=== PATIENT | female | born 1980 | race American Indian/Alaskan Native ===

== ENCOUNTER 2018-02-20 22:25 | Emergency (ER) | payer OTHER ==
[~2018-02-20] VITALS: Ht 154.9 cm; Wt 63.5 kg
[2018-02-20] MEDS ORDERED: LAMICTAL25 MG PO (22:34)
== END 2018-02-20 23:58 | disposition home or self-care (01) ==
LOC: ED 22:25
DX: R55 Syncope and collapse (principal); F17.200 Nicotine dependence, unspecified, uncomplicated; Z79.899 Other long term (current) drug therapy
CPT/HCPCS: 80053; 81001; 84484; 84703; 85025; 99283; G0480; J7030

== ENCOUNTER 2018-08-30 14:48 | Emergency (ER) | payer OTHER ==
[~2018-08-30] VITALS: Ht 154.9 cm; Wt 63.5 kg
[~2018-08-30 14:48] MED LIST: LAMICTAL25 MG PO
== END 2018-08-30 16:36 | disposition home or self-care (01) ==
LOC: ED 14:48
DX: F41.9 Anxiety disorder, unspecified (principal); F43.9 Reaction to severe stress, unspecified; F17.200 Nicotine dependence, unspecified, uncomplicated; Z79.899 Other long term (current) drug therapy
CPT/HCPCS: 80053; 81001; 84703; 85025; 99284; J7030

== ENCOUNTER 2018-12-21 15:18 | Emergency (ER) | payer OTHER ==
[~2018-12-21] VITALS: Ht 154.9 cm; Wt 63.5 kg
[2018-12-21] MEDS ORDERED: KEPPRA500 MG PO (16:08)
== END 2018-12-21 16:55 | disposition home or self-care (01) ==
LOC: ED 15:18
DX: S09.90XA Unspecified injury of head, initial encounter (principal); G40.409 Other generalized epilepsy and epileptic syndromes, not intractable, without status epilepticus; F17.200 Nicotine dependence, unspecified, uncomplicated; Z79.899 Other long term (current) drug therapy; W22.8XXA Striking against or struck by other objects, initial encounter
CPT/HCPCS: 70450; 99283-25

== ENCOUNTER 2019-01-12 16:57 | Emergency (ER) | payer OTHER ==
[~2019-01-12] VITALS: Ht 154.9 cm; Wt 63.0 kg
[~2019-01-12 16:57] MED LIST changes: +KEPPRA500 MG PO
--- OUTSIDE RECORDS SUMMARY | 2019-01-12 17:00 | XMS ---
PreManage Notification: COREY LAFLEUR Security Policewoman Events No recent Security Events currently on file CRITERIA MET - [facility] - 2 Visits in 30 Days CARE PROVIDERS There are no care providers on record at this time. Gisela has no Care Guidelines for this patient. Parish VISIT COUNT (12 MO.) [address] [facility] TOTAL 4 NOTE: Visits indicate total known visits. ED/C VISIT TRACKING (12 MO.) 01/12/2019 16:[address] [facility] [place] TYPE: Emergency COMPLAINT: - POSS SEIZURE 12/21/2018 15:[address] [facility] [place] TYPE: Emergency COMPLAINT: - HEAD PAIN/INJURY DIAGNOSES: - Nicotine dependence, unspecified, uncomplicated - Headache - Other generalized epilepsy and epileptic syndromes, not intractable, without status epilepticus - Other intermodal owner operator truck driver (current) drug therapy - Striking against or struck by other objects, initial encounter - Unspecified injury of head, initial encounter 08/30/2018 14:49 [facility] [place] [place] TYPE: Emergency COMPLAINT: - POSS SEIZURES DIAGNOSES: - Anxiety disorder, unspecified - Other penitentiary (current) drug therapy - Reaction to severe stress, unspecified - Nicotine dependence, unspecified, uncomplicated - Syncope and collapse 02/20/2018 22:[address] [facility] [address] [facility] [place] [place] TYPE: Emergency COMPLAINT: - POSS SEIZURE DIAGNOSES: - Syncope and collapse - Other penitentiary (current) drug therapy - Dizziness and giddiness - Nicotine dependence, unspecified, uncomplicated INPATIENT VISIT TRACKING (12 MO.) No inpatient visits to display in this time frame [id number]
== END 2019-01-12 19:05 | disposition home or self-care (01) ==
LOC: ED 16:57
DX: G40.909 Epilepsy, unspecified, not intractable, without status epilepticus (principal); F17.200 Nicotine dependence, unspecified, uncomplicated; Z79.899 Other long term (current) drug therapy
CPT/HCPCS: 99283

== ENCOUNTER 2020-03-23 16:26 | Emergency (ER) | payer OTHER ==
[~2020-03-23] VITALS: Ht 154.9 cm; Wt 63.0 kg
== END 2020-03-23 17:58 | disposition home or self-care (01) ==
LOC: ED 16:26
DX: S49.92XA Unspecified injury of left shoulder and upper arm, initial encounter (principal); F17.200 Nicotine dependence, unspecified, uncomplicated; W06.XXXA Fall from bed, initial encounter
CPT/HCPCS: 73030; 99283-25

== ENCOUNTER 2020-06-02 03:16 | Emergency (ER) | payer OTHER ==
[~2020-06-02] VITALS: Ht 154.9 cm; Wt 63.0 kg
[2020-06-02] MEDS ORDERED: MIRENA1 EACH IY (03:31)
[2020-06-02] MEDS ORDERED: VIMPAT100 MG PO (05:07)
[2020-06-02] MEDS ORDERED: PYRIDOXINE HCL50 MG PO (05:07)
== END 2020-06-02 06:05 | disposition home or self-care (01) ==
LOC: ED 03:16
DX: R56.9 Unspecified convulsions (principal); F17.200 Nicotine dependence, unspecified, uncomplicated; Z79.899 Other long term (current) drug therapy
CPT/HCPCS: 80053; 83735; 85025; 99285; J7030

== ENCOUNTER 2020-08-01 15:31 | Emergency (ER) | payer OTHER ==
[~2020-08-01] VITALS: Ht 154.9 cm; Wt 63.5 kg
[~2020-08-01 15:31] MED LIST changes: +MIRENA1 EACH IY; +PYRIDOXINE HCL50 MG PO; +VIMPAT100 MG PO
== END 2020-08-01 19:44 | disposition home or self-care (01) ==
LOC: ED 15:31
DX: K92.1 Melena (principal)
CPT/HCPCS: 80053; 85025; 99284

== ENCOUNTER 2020-08-26 17:46 | Emergency (ER) | payer OTHER ==
[~2020-08-26] VITALS: Ht 154.9 cm; Wt 63.5 kg
--- OUTSIDE RECORDS SUMMARY | 2020-08-26 17:48 | XMS ---
PreManage Notification: COREY LAFLEUR Security Spinning Room Worker Events No recent Security Events currently on file CRITERIA MET - [facility] - 2 Visits in 30 Days CARE PROVIDERS There are no care providers on record at this time. Gisela has no Care Guidelines for this patient. [facility] T[facility] NOTE: Visits indicate total known visits. [place] [place] (12 MO.) 08/26/2020 17:[address] [facility] [place] TYPE: Emergency COMPLAINT: - SEIZURE SYMPTOMS 08/01/2020 15:32 [facility] [place] TYPE: Emergency COMPLAINT: - BLOOD IN STOOL, CRAMPING DIAGNOSES: - Melena 06/02/2020 03:16 [facility] [place] TYPE: Emergency COMPLAINT: - SEIZURE DIAGNOSES: - Nicotine dependence, unspecified, uncomplicated - Unspecified convulsions - Other termite renewal inspector (current) drug therapy - Unspecified convulsions 03/23/2020 16:27 [facility] [place] TYPE: Emergency COMPLAINT: - L SHOULDER INJURY DIAGNOSES: - Pain in left shoulder - Fall from bed, initial encounter - Unspecified injury of left shoulder and upper arm, initial encounter - Nicotine dependence, unspecified, uncomplicated INPATIENT VISIT TRACKING (12 MO.) No inpatient visits to display in this time frame [id number]
== END 2020-08-26 19:10 | disposition home or self-care (01) ==
LOC: ED 17:46
DX: G40.909 Epilepsy, unspecified, not intractable, without status epilepticus (principal); F17.200 Nicotine dependence, unspecified, uncomplicated; Z79.899 Other long term (current) drug therapy
CPT/HCPCS: 80048; 82542; 99284; J7030

== ENCOUNTER 2020-09-12 06:15 | Emergency (ER) | payer OTHER ==
[~2020-09-12] VITALS: Ht 154.9 cm; Wt 63.5 kg
--- OUTSIDE RECORDS SUMMARY | 2020-09-12 06:18 | XMS ---
PreManage Notification: COREY LAFLEUR Security Grievance Coordinator Events No recent Security Events currently on file CRITERIA MET - [facility] - 2 Visits in 30 Days CARE PROVIDERS Name Unknown Clinic/Center 08/27/2020-Current PHONE: [phone] Gisela has no Care Guidelines for this patient. Care History Medical/Surgical 08/27/[address] [facility] - PATIENT IS [facility], \T\middot;\T\nbsp; PLEASE REFER PATIENT TO [facility] FOR NON EMERGENT MEDICAL NEEDS. \T\middot;\T\nbsp; [facility] CAN SEE PATIENTS SAME DAY FOR APTS IF PATIENT CALLS FIRST THING IN THE MORNING. E.D. VISIT COUNT (12 MO.) 5 [facility] TOTAL 5 NOTE: Visits indicate total known visits. ED/UCC VISIT TRACKING (12 MO.) 09/12/2020 06:16 [facility] [place] TYPE: Emergency COMPLAINT: - SEIZURE 08/26/2020 17:47 [facility] [place] TYPE: Emergency COMPLAINT: - SEIZURE SYMPTOMS DIAGNOSES: - Epilepsy, unspecified, not intractable, without status epilepticus - Other longterm (current) drug therapy - Nicotine dependence, unspecified, uncomplicated 08/01/2020 15:32 [facility] [place] TYPE: Emergency COMPLAINT: - BLOOD IN STOOL, CRAMPING DIAGNOSES: - Melena 06/02/2020 03:16 [facility] [place] TYPE: Emergency COMPLAINT: - SEIZURE DIAGNOSES: - Nicotine dependence, unspecified, uncomplicated - Unspecified convulsions - Other longterm (current) drug therapy - Unspecified convulsions 03/23/2020 16:27 [facility] [place] TYPE: Emergency COMPLAINT: - L SHOULDER INJURY DIAGNOSES: - Pain in left shoulder - Fall from bed, initial encounter - Unspecified injury of left shoulder and upper arm, initial encounter - Nicotine dependence, unspecified, uncomplicated INPATIENT VISIT TRACKING (12 MO.) No inpatient visits to display in this time frame [email or web address]
[2020-09-12] MEDS ORDERED: KEPPRA1000 MG PO (06:32)
[2020-09-12] MEDS ORDERED: VIMPAT150 MG PO (06:33)
== END 2020-09-12 15:58 | disposition home or self-care (01) ==
LOC: ED 06:15
DX: G40.909 Epilepsy, unspecified, not intractable, without status epilepticus (principal); F17.200 Nicotine dependence, unspecified, uncomplicated; Z79.899 Other long term (current) drug therapy
CPT/HCPCS: 80053; 85025; 96374; 99284-25; J2060

== ENCOUNTER 2020-11-30 17:24 | Emergency (ER) | payer OTHER ==
[~2020-11-30] VITALS: Ht 154.9 cm; Wt 64.4 kg
[~2020-11-30 17:24] MED LIST changes: +KEPPRA1000 MG PO; +VIMPAT150 MG PO
--- OUTSIDE RECORDS SUMMARY | 2020-11-30 17:26 | XMS ---
PreManage Notification: COREY LAFLEUR Security Lock Master Events 1 event(s) in the past 18 months Most recent security events: Elopement at [facility] 11/08/2020 19:37 - Other Details: PATIENT LWBS. CRITERIA MET - [facility] - 2 Visits in 30 Days CARE PROVIDERS [facility] 08/27/2020-[facility] PHONE: [phone] Gisela has no Care Guidelines for this patient. Care History Medical/Surgical 09/13/2020 [facility] - PATIENT LAST PCP APT 03/29/2020 - PATIENT NEUROLOGIST DR MATHEW- [facility] [phone]. - PATIENT HAS AN APT FOR FOLLOW UP TO RECENT ED VISITS ON 09/18/20 WITH NEUROLOGIST. - PATIENT HAS MEDICATIONS FILLED AT [facility] LAST FILL 09/04/20. - PHYSICIAN AT [facility] CALLED PATIENT TODAY 09/13/20 FOR FOLLOW UP. 08/27/2020 [facility] - PATIENT IS [facility] ELIGIBLE, \T\middot;\T\nbsp; PLEASE REFER PATIENT TO [facility] FOR NON EMERGENT MEDICAL NEEDS. \T\middot;\T\nbsp; [facility] CAN SEE PATIENTS SAME DAY FOR APTS IF PATIENT CALLS FIRST THING IN THE MORNING. E.D. VISIT COUNT (12 MO.) [address] [facility] TOTAL 7 NOTE: Visits indicate total known visits. ED/UCC VISIT TRACKING (12 MO.) 11/30/2020 17:[address] [facility] [place] TYPE: Emergency COMPLAINT: - SEIZURE 11/08/2020 19:37 [facility] [place] TYPE: Emergency COMPLAINT: - SOB 09/12/2020 06:16 [facility] [place] TYPE: Emergency COMPLAINT: - SEIZURE DIAGNOSES: - Epilepsy, unspecified, not intractable, without status epilepticus - Other computer terminal operator (current) drug therapy - Nicotine dependence, unspecified, uncomplicated 08/26/2020 17:[address] [facility] [place] TYPE: Emergency COMPLAINT: - SEIZURE SYMPTOMS DIAGNOSES: - Epilepsy, unspecified, not intractable, without status epilepticus - Other computer terminal operator (current) drug therapy - Nicotine dependence, unspecified, uncomplicated 08/01/2020 15:32 [facility] [place] TYPE: Emergency COMPLAINT: - BLOOD IN STOOL, CRAMPING DIAGNOSES: - Melena 06/02/2020 03:16 [facility] [place] TYPE: Emergency COMPLAINT: - SEIZURE DIAGNOSES: - Nicotine dependence, unspecified, uncomplicated - Unspecified convulsions - Other senior living (current) drug therapy - Unspecified convulsions 03/23/2020 16:27 [facility] [place] TYPE: Emergency COMPLAINT: - L SHOULDER INJURY DIAGNOSES: - Pain in left shoulder - Fall from bed, initial encounter - Unspecified injury of left shoulder and upper arm, initial encounter - Nicotine dependence, unspecified, uncomplicated INPATIENT VISIT TRACKING (12 MO.) No inpatient visits to display in this time frame [id number]
== END 2020-11-30 20:00 | disposition home or self-care (01) ==
LOC: ED 17:24
DX: G40.909 Epilepsy, unspecified, not intractable, without status epilepticus (principal); F17.200 Nicotine dependence, unspecified, uncomplicated; Z79.899 Other long term (current) drug therapy
CPT/HCPCS: 80053; 81001; 84703; 85025; 96374; 99284-25; J7030

== ENCOUNTER 2020-12-21 23:51 | Emergency (ER) | payer OTHER ==
[~2020-12-21] VITALS: Ht 154.9 cm; Wt 64.4 kg
--- OUTSIDE RECORDS SUMMARY | 2020-12-21 23:54 | XMS ---
PreManage Notification: COREY LAFLEUR Security Senior Software Project Manager Events 1 event(s) in the past 18 months Most recent security events: Elopement at [facility] 11/08/2020 19:37 - Other Details: PATIENT LWBS. CRITERIA MET - 6 ED Visits in 6 Months - [facility] - 2 Visits in 30 Days CARE PROVIDERS [facility] 08/27/2020-[facility] PHONE: [phone] Gisela has no Care Guidelines for this patient. Care History Medical/Surgical 09/13/2020 [facility] - PATIENT LAST PCP APT 03/29/2020 - PATIENT NEUROLOGIST DR MATHEW- [facility] [phone]. - PATIENT HAS AN APT FOR FOLLOW UP TO RECENT ED VISITS ON 09/18/20 WITH NEUROLOGIST. - PATIENT HAS MEDICATIONS FILLED AT [facility] LAST FILL 09/04/20. - PHYSICIAN AT [facility] CALLED PATIENT TODAY 09/13/20 FOR FOLLOW UP. 08/27/2020 [facility] - PATIENT IS [facility] ELIGIBLE, \T\middot;\T\nbsp; PLEASE REFER PATIENT TO [facility] FOR NON EMERGENT MEDICAL NEEDS. \T\middot;\T\nbsp; [facility] CAN SEE PATIENTS SAME DAY FOR APTS IF PATIENT CALLS FIRST THING IN THE MORNING. E.D. VISIT COUNT (12 MO.) [address] [facility] TOTAL 8 NOTE: Visits indicate total known visits. ED/UCC VISIT TRACKING (12 MO.) 12/21/2020 23:52 [facility] [place] TYPE: Emergency COMPLAINT: - SEIZURES 11/30/2020 17:24 [facility] [place] [facility] [place] TYPE: Emergency COMPLAINT: - SEIZURE DIAGNOSES: - Nicotine dependence, unspecified, uncomplicated - Epilepsy, unspecified, not intractable, without status epilepticus - Other penitentiary (current) drug therapy 11/08/2020 19:37 [facility] [place] TYPE: Emergency COMPLAINT: - SOB 09/12/2020 06:16 [facility] [place] TYPE: Emergency COMPLAINT: - SEIZURE DIAGNOSES: - Epilepsy, unspecified, not intractable, without status epilepticus - Other penitentiary (current) drug therapy - Nicotine dependence, unspecified, uncomplicated 08/26/2020 17:47 [facility] [place] TYPE: Emergency COMPLAINT: - SEIZURE SYMPTOMS DIAGNOSES: - Epilepsy, unspecified, not intractable, without status epilepticus - Other watermelon inspector (current) drug therapy - Nicotine dependence, unspecified, uncomplicated 08/01/2020 15:32 [facility] [place] TYPE: Emergency COMPLAINT: - BLOOD IN STOOL, CRAMPING DIAGNOSES: - Melena 06/02/2020 03:16 [facility] [place] TYPE: Emergency COMPLAINT: - SEIZURE DIAGNOSES: - Nicotine dependence, unspecified, uncomplicated - Unspecified convulsions - Other penitentiary (current) drug therapy - Unspecified convulsions 03/23/2020 16:27 [facility] [place] TYPE: Emergency COMPLAINT: - L SHOULDER INJURY DIAGNOSES: - Pain in left shoulder - Fall from bed, initial encounter - Unspecified injury of left shoulder and upper arm, initial encounter - Nicotine dependence, unspecified, uncomplicated INPATIENT VISIT TRACKING (12 MO.) No inpatient visits to display in this time frame [email or web address]
== END 2020-12-22 00:55 | disposition home or self-care (01) ==
LOC: ED 23:51
DX: G40.909 Epilepsy, unspecified, not intractable, without status epilepticus (principal); Z79.899 Other long term (current) drug therapy
CPT/HCPCS: 80053; 81001; 84703; 85025; 99284

== ENCOUNTER 2022-06-02 16:38 | Emergency (ER) | payer OTHER ==
[~2022-06-02] VITALS: Ht 154.9 cm; Wt 74.8 kg
--- OUTSIDE RECORDS SUMMARY | 2022-06-02 16:40 | XMS ---
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 Care History Medical/Surgical 12/31/2020 [facility] - W CONTACTED SUPERVISOR LIQUID YEAST WHITNEY AT [facility]- WHITNEY WILL TRY AND CONTACT PATIENT -[facility] DID NOT HAVE A WORKING CONTACT NUMBER FOR PATIENT. - PATIENT HAS AN APT WITH NEUROLOGIST DR MATHEW ON 01/11/21. PATIENT IS PICKING UP MEDICATIONS PER [facility]. 09/13/2020 [facility] - PATIENT LAST PCP APT 03/29/2020 - PATIENT NEUROLOGIST DR MATHEW- [facility] [phone]. - PATIENT HAS AN APT FOR FOLLOW UP TO RECENT ED VISITS ON 09/18/20 WITH NEUROLOGIST. - PATIENT HAS MEDICATIONS FILLED AT [facility] LAST FILL 09/04/20. - PHYSICIAN AT [facility] CALLED PATIENT TODAY 09/13/20 FOR FOLLOW UP. 08/27/2020 [facility] - PATIENT IS [facility] ELIGIBLE, \T\middot;\T\nbsp; PLEASE REFER PATIENT TO [facility] FOR NON EMERGENT MEDICAL NEEDS. \T\middot;\T\nbsp; [facility] CAN SEE PATIENTS SAME DAY FOR APTS IF PATIENT CALLS FIRST THING IN THE MORNING. [place] VISIT COUNT (12 MO.) 1 [facility] TOTAL 1 NOTE: Visits indicate total known visits. ED/UCC VISIT TRACKING (12 MO.) 06/02/2022 16:39 [facility] [place] TYPE: Emergency COMPLAINT: - SEIZURE INPATIENT VISIT TRACKING (12 MO.) No inpatient visits to display in this time frame [email or web address]
== END 2022-06-02 21:00 | disposition home or self-care (01) ==
LOC: ED 16:38
DX: G40.909 Epilepsy, unspecified, not intractable, without status epilepticus (principal); F17.200 Nicotine dependence, unspecified, uncomplicated; Z79.899 Other long term (current) drug therapy
CPT/HCPCS: 36415; 73130; 80053; 81001; 85025; 96374; 99284-25; G0480; J2060; J7030

== ENCOUNTER 2023-06-12 12:26 | Emergency (ER) | payer OTHER ==
[~2023-06-12] VITALS: Ht 154.9 cm; Wt 74.8 kg
--- OUTSIDE RECORDS SUMMARY | 2023-06-12 12:28 | XMS ---
PreManage Notification: COREY LAFLEUR Security Drying Room Attendant Events No recent Security Events currently on file CRITERIA MET - [facility] CARE PROVIDERS [facility]/[place] 08/27/2020-[facility] PHONE: [phone] -, [place]- Dentist: Manager Of Creative Services [facility] PHONE: [phone] Gisela has no Care Guidelines for this patient. Care History Medical/Surgical 12/31/2020 [facility] - W CONTACTED CERTIFIER WHITNEY AT [facility]- WHITNEY WILL TRY AND CONTACT PATIENT -[facility] DID NOT HAVE A WORKING CONTACT NUMBER FOR PATIENT. - PATIENT HAS AN APT WITH NEUROLOGIST DR MATHEW ON 01/11/21. PATIENT IS PICKING UP MEDICATIONS PER [facility]. 09/13/2020 [facility] - PATIENT LAST PCP APT 03/29/2020 - PATIENT NEUROLOGIST DR MATHEW- [facility] [phone]. - PATIENT HAS AN APT FOR FOLLOW UP TO RECENT ED VISITS ON 09/18/20 WITH NEUROLOGIST. - PATIENT HAS MEDICATIONS FILLED AT [facility] LAST FILL 09/04/20. - PHYSICIAN AT [facility] CALLED PATIENT TODAY 09/13/20 FOR FOLLOW UP. 08/27/2020 [facility] \T\middot;\T\nbsp; PLEASE REFER PATIENT TO [facility] FOR NON EMERGENT MEDICAL NEEDS. \T\middot;\T\nbsp; [facility] CAN SEE PATIENTS SAME DAY FOR APTS IF PATIENT CALLS FIRST THING IN THE MORNING. E.D. VISIT COUNT (12 MO.) [address] [place] [address] TOTAL 1 NOTE: Visits indicate total known visits. ED/UCC VISIT TRACKING (12 MO.) 06/12/2023 12:27 [facility] [place] TYPE: Emergency COMPLAINT: - POSS SEIZURE INPATIENT VISIT TRACKING (12 MO.) No inpatient visits to display in this time frame [id number]
[2023-06-12 12:49] LABS: EOSINOPHILS 2.8 % (0-6); HEMATOCRIT 40.4 % (35.0-50.0); HEMOGLOBIN 13.8 g/dL (12.0-18.0); LYMPHOCYTES 23.3 % (24-44); MCH 29.2 (27-36); MCHC 34.2 g/dl (30-36); MCV 85.4 fl (81-99); MONOCYTES 5.3 % (0-12); NEUTROPHILS 67.6 % (39-80); PLATELET COUNT 235 K/uL (140-440); RBC 4.74 M/ul (4.3-5.7); RDW 13.1 (10.5-15.0)
[2023-06-12 13:01] LABS: ALBUMIN 3.3 g/dL (3.4-5.0); ALBUMIN/GLOBULIN RATIO 0.8 (1.1-2.4); ANION GAP 12.6 (7-21); BILIRUBIN, TOTAL 0.2 ng/dL (0.2-1.0); BUN/CREATININE RATIO 11.26 (6.0-28.6); CALCIUM 8.5 mg/dL (8.5-10.1); CREATININE, SERUM 0.71 mg/dL (0.55-1.02); POTASSIUM 3.6 mmol/L (3.5-5.1); PROTEIN, TOTAL 7.4 g/dL (6.4-8.2)
[2023-06-12 14:30] VITALS: BP 114/78
== END 2023-06-12 14:30 | disposition home or self-care (01) ==
LOC: ED 12:26
PROVIDERS: Emergency Medicine
DX: G40.909 Epilepsy, unspecified, not intractable, without status epilepticus (principal); F17.200 Nicotine dependence, unspecified, uncomplicated; Z79.899 Other long term (current) drug therapy
CPT/HCPCS: 36415; 80053; 85025; 99284

== ENCOUNTER 2025-03-25 10:37 | Emergency (ER) | payer OTHER ==
[~2025-03-25] VITALS: Ht 154.9 cm; Wt 75.7 kg
[~2025-03-25 10:37] MED LIST changes: +GABAPENTIN300 MG PO; +LACOSAMIDE150 MG PO; +LEVETIRACETAM1000 MG PO
[2025-03-25 10:59] LABS: BASOPHILS 0.5 % (0.1-1.2); EOSINOPHILS 1.7 % (0.7-5.8); LYMPHOCYTES 31.9 % (19.3-51.7); MCH 29.9 PG (25.6-32.2); MCHC 33.1 g/dL (32.2-35.5); MCV 90.3 fL (79.4-94.8); MONOCYTES 5.2 % (4.7-12.5); NEUTROPHILS 60.3 % (34.0-71.1); RBC 4.52 M/uL (3.93-5.22)
[2025-03-25 11:15] LABS: ALCOHOL, MEDICAL <3 ng/dL (<3); ALT (SGPT) 27 U/L (14-59); AST (SGOT) 18 U/L (15-37); GLOMERULAR FILTRATION RATE,EST 109 mL/min (>60); PROTEIN, TOTAL 7.1 g/dL (6.4-8.2); UREA NITROGEN 9 mg/dL (7-18)
[2025-03-25 11:30] LABS: BLOOD/HGB, URINE TRACE-L (Negative); KETONE, URINE NEGATIVE (Negative); LEUK ESTERASE, URINE NEGATIVE (negative); NITRITE, URINE NEGATIVE (negative)
[2025-03-25 11:35] LABS: EPITHELIAL CELLS, URINE SQUAMOUS 1+ /lpf (0-1+)
[2025-03-25 11:36] LABS: BACTERIA, URINE RARE /hpf (negative); CASTS, URINE NONE SEEN \\lpf; CRYSTALS, URINE NONE SEEN (0-1+); REFLEX CULTURE, URINE No (No)
[2025-03-25 11:45] LABS: AMPHETAMINES, URINE NEGATIVE (NEGATIVE); BARBITURATES, URINE NEGATIVE (NEGATIVE); BENZODIAZEPINE, URINE NEGATIVE (NEGATIVE); CANNABINOID, URINE NEGATIVE (NEGATIVE); COCAINE, URINE NEGATIVE (NEGATIVE); ECSTASY, URINE NEGATIVE (NEGATIVE); FENTANYL, URINE NEGATIVE (NEGATIVE); METHADONE, URINE NEGATIVE (NEGATIVE); OPIATES, URINE NEGATIVE (NEGATIVE); OXYCODONE, URINE NEGATIVE (NEGATIVE); PHENCYCLIDINE, URINE NEGATIVE (NEGATIVE)
[2025-03-25 12:37] VITALS: BP 133/83
== END 2025-03-25 12:37 | disposition home or self-care (01) ==
LOC: ED 10:37
PROVIDERS: Emergency Medicine
DX: R56.9 Unspecified convulsions (principal); F17.200 Nicotine dependence, unspecified, uncomplicated; Z79.899 Other long term (current) drug therapy
CPT/HCPCS: 36415; 80053; 80307; 81001; 84703; 85025; 99284; G0480